=== PATIENT | female | born 1965 | race American Indian/Alaskan Native ===

== ENCOUNTER 2016-11-28 16:58 | Emergency (ER) | payer SELFPAY ==
[2016-11-28 18:21] LABS: Basophils % (Auto) 1.1 % (0.0-1.8); Eosinophils % (Auto) 5.6 % (0.0-4.3); Hematocrit 41.3 % (30.3-42.9); Hemoglobin 13.6 gm/dl (10.1-14.3); Mean Corpuscular HGB Conc 33 % (30-34); Mean Corpuscular Hemoglobin 28 pg (28-32); Mean Corpuscular Volume 86 fl (79-97); Platelet Count 177 K/mm3 (140-440); Red Blood Count 4.81 M/mm3 (3.65-5.03); Red Cell Distribution Width 13.8 % (13.2-15.2); White Blood Count 4.4 K/mm3 (4.5-11.0)
[2016-11-28 18:45] LABS: Alanine Aminotransferase 11 units/L (7-56); Albumin 4.4 g/dL (3.9-5); Albumin/Globulin Ratio 1.4 %; Alkaline Phosphatase 96 units/L (35-129); Anion Gap 19 mmol/L; BUN/Creatinine Ratio 21.25; Bilirubin,Total < 0.20 mg/dL (0.1-1.2); Blood Urea Nitrogen 17 mg/dL (7-17); Calcium 9.3 mg/dL (8.4-10.2); Carbon Dioxide 27 mmol/L (22-30); Chloride 100.2 mmol/L (98-107); Glucose 86 mg/dL (65-100); Lipase 49 units/L (13-60); Potassium 4.5 mmol/L (3.6-5.0); Sodium 142 mmol/L (137-145); Total Protein 7.6 g/dL (6.3-8.2)
[2016-11-28 23:04] VITALS: BP 140/78
[2016-11-28] MEDS: NACL 0.9% 1000 ML 1,000 ML IV ONE (23:10)
[2016-11-28 23:41] LABS: Bilirubin,Urine NEG (Negative); Blood,Urine NEG (Negative); Ketones,Urine NEG (Negative); Leukocyte Esterase,Urine TR (Negative); Mucus,Urine FEW /HPF; Nitrite,Urine NEG (Negative); Protein,Urine <15 mg/dL mg/dL (Negative); Urobilinogen,Urine < 2.0 mg/dL (<2.0)
--- NOTE | 2016-11-29 00:07 | Emergency Department Report ---
HPI - General Chief Complaint: Abdominal Pain Time Seen by Provider: 11/28/16 22:43 - HPI HPI: 50-year-old female brought to ED with abdominal pain for 2 weeks. Symptoms are also accompanied by dysuria, increased urinary frequency, but no flank pain. ED Past Medical Hx - Past Medical History Previous Medical History?: Yes Additional medical history: herpes - Surgical History Past Surgical History?: No - Family History Family history: hypertension - Social History Smoking Status: Never Smoker Substance Use Type: None - Medications Home Medications: Home Medications Medication Instructions Recorded Confirmed Last Taken Type Ciprofloxacin HCl [Ciprofloxacin 500 mg PO Q12HR #20 tab 11/29/16 Unknown Rx TAB] Dicyclomine [Bentyl] 10 mg PO QID #20 bottle 11/29/16 Unknown Rx ED Review of Systems ROS: Stated complaint: CONFUSED/ANXIOUS/ABD PAINS Other details as noted in HPI Constitutional: no symptoms reported Gastrointestinal: abdominal pain Physical Exam - Physical Exam Vital Signs: Vital Signs 11/28/16 11/28/16 17:35 23:02 Temperature 98.6 F Pulse Rate 71 74 Respiratory 18 16 Rate Blood Pressure 129/83 Blood Pressure 140/78 [Left] O2 Sat by Pulse 100 95 Oximetry Physical Exam: Gen. alert and oriented 3 in no distress Head atraumatic normocephalic Eyes PERR LA EOMI Chest regular rate and rhythm normal S1-S2 lungs clear bilaterally Abdomen soft nondistended Back no point tenderness paravertebral tenderness Neuro no focal deficit. Psych normal mood. ED Course Vital Signs 11/28/16 11/28/16 17:35 23:02 Temperature 98.6 F Pulse Rate 71 74 Respiratory 18 16 Rate Blood Pressure 129/83 Blood Pressure 140/78 [Left] O2 Sat by Pulse 100 95 Oximetry ED Medical Decision Making - Lab Data Result diagrams: 11/28/16 17:53 11/28/16 17:53 Critical care attestation.: If time is entered above; I have spent that time in minutes in the direct care of this critically ill patient, excluding procedure time. ED Disposition Clinical Impression: Cystitis Disposition: DC-01 TO HOME OR SELFCARE Is pt being admited?: No Does the pt Need Aspirin: No Condition: Stable Instructions: Abdominal Pain (ED) Prescriptions: Ciprofloxacin HCl [Ciprofloxacin TAB] 500 mg PO Q12HR #20 tab Dicyclomine [Bentyl] 10 mg PO QID #20 bottle Referrals: PRIMARY CARE, [Primary Care Provider] - 3-5 Days
== END 2016-11-29 00:23 | disposition home or self-care (01) ==
LOC: ED 16:58
DX: N30.90 Cystitis, unspecified without hematuria (principal)
CPT/HCPCS: 36415; 80053; 81001; 82962; 83690; 85025; 93005; 93010; 96360; 99283; J7030

== ENCOUNTER 2016-12-04 10:41 | Emergency (ER) | payer SELFPAY ==
[2016-12-04] MEDS ORDERED: NACL 0.9% 1000 ML 1,000 ML IV ONE (11:15)
[2016-12-04 11:56] LABS: Alanine Aminotransferase 10 units/L (7-56); Albumin/Globulin Ratio 1.2 %; Alkaline Phosphatase 83 units/L (35-129); BUN/Creatinine Ratio 18.75; Blood Urea Nitrogen 15 mg/dL (7-17); Calcium 8.8 mg/dL (8.4-10.2); Carbon Dioxide 28 mmol/L (22-30); Glucose 79 mg/dL (65-100); Lipase 39 units/L (13-60); Total Protein 7.4 g/dL (6.3-8.2)
[2016-12-04 11:57] LABS: Anion Gap 16 mmol/L; Chloride 100.4 mmol/L (98-107); Potassium 4.5 mmol/L (3.6-5.0); Sodium 140 mmol/L (137-145)
[2016-12-04 11:58] LABS: Basophils % (Auto) 1.1 % (0.0-1.8); Eosinophils % (Auto) 4.6 % (0.0-4.3); Hematocrit 38.9 % (30.3-42.9); Mean Corpuscular HGB Conc 33 % (30-34); Mean Corpuscular Hemoglobin 29 pg (28-32); Mean Corpuscular Volume 86 fl (79-97); Platelet Count 155 K/mm3 (140-440); Red Blood Count 4.53 M/mm3 (3.65-5.03); Red Cell Distribution Width 13.7 % (13.2-15.2); White Blood Count 3.7 K/mm3 (4.5-11.0)
[2016-12-04 12:09] LABS: INR 0.97 (0.87-1.13)
--- NOTE | 2016-12-04 16:55 | Emergency Department Report ---
ED General Adult HPI - General Chief complaint: GI Bleed Stated complaint: BLOOD IN STOOL Time Seen by Provider: 12/04/16 16:54 Source: patient Mode of arrival: Ambulatory Limitations: No Limitations - History of Present Illness Initial comments: Patient is a 50-year-old female with a past medical history of hypertension and GERD who presents with rectal bleeding. Patient states symptoms have occurred today.She states that there was some streaks of blood in her toliet paper after she had a bowel movement. Patient states that she has no pain. Patient's symptoms are not severe. It only occurred once today. She has no headache no nausea no vomiting. She also states that this is never happened before. Patient denies any black stool or abdominal pain. - Related Data Home Medications Medication Instructions Recorded Confirmed Last Taken Aspirin [Aspirin BABY CHEW TAB] 81 mg PO QDAY 12/04/16 12/04/16 Unknown Previous Rx's Medication Instructions Recorded Last Taken Type Phenyleph/Mineral Oil/Petrolat 28 gm RC BID #1 oint.appl 12/04/16 Unknown Rx [Preparation H Ointment] Allergies Allergy/AdvReac Type Severity Reaction Status Date / Time No Known Allergies Allergy Verified 12/04/16 11:09 ED Review of Systems ROS: Stated complaint: BLOOD IN STOOL Other details as noted in HPI Constitutional: denies: chills, fever Eyes: denies: eye pain, eye discharge, vision change ENT: denies: ear pain, throat pain Respiratory: denies: cough, shortness of breath, wheezing Cardiovascular: denies: chest pain, palpitations Endocrine: no symptoms reported Gastrointestinal: hematochezia. denies: abdominal pain, nausea, diarrhea Genitourinary: denies: urgency, dysuria, discharge Musculoskeletal: denies: back pain, joint swelling, arthralgia Skin: denies: rash, lesions Neurological: denies: headache, weakness, paresthesias Psychiatric: denies: anxiety, depression Hematological/Lymphatic: denies: easy bleeding, easy bruising ED Past Medical Hx - Past Medical History Hx Hypertension: Yes Hx GERD: Yes Additional medical history: herpes. HEART MURMUR / PALPIATIONS - Surgical History Additional Surgical History: TUBAL LIGATION - Social History Smoking Status: Never Smoker Substance Use Type: None - Medications Home Medications: Home Medications Medication Instructions Recorded Confirmed Last Taken Type Aspirin [Aspirin BABY CHEW TAB] 81 mg PO QDAY 12/04/16 12/04/16 Unknown History Phenyleph/Mineral Oil/Petrolat 28 gm RC BID #1 oint.appl 12/04/16 Unknown Rx [Preparation H Ointment] ED Physical Exam - General Limitations: No Limitations General appearance: alert, in no apparent distress - Head Head exam: Present: atraumatic, normocephalic - Eye Eye exam: Present: normal appearance - ENT ENT exam: Present: mucous membranes moist - Neck Neck exam: Present: normal inspection - Respiratory Respiratory exam: Present: normal lung sounds bilaterally. Absent: respiratory distress - Cardiovascular Cardiovascular Exam: Present: regular rate, normal rhythm. Absent: systolic murmur, diastolic murmur, rubs, gallop - GI/Abdominal GI/Abdominal exam: Present: soft, normal bowel sounds - Rectal Rectal exam: Present: other (external hemorrhoid and no gross bloody stool) - Extremities Exam Extremities exam: Present: normal inspection - Back Exam Back exam: Present: normal inspection - Neurological Exam Neurological exam: Present: alert, oriented X3, CN II-XII intact - Psychiatric Psychiatric exam: Present: normal affect, normal mood - Skin Skin exam: Present: warm, dry, intact, normal color. Absent: rash ED Course Vital Signs 12/04/16 12/04/16 12/04/16 11:09 16:19 16:30 Temperature 97.7 F Pulse Rate 66 60 Respiratory 17 14 17 Rate Blood Pressure 130/88 140/79 O2 Sat by Pulse 100 100 100 Oximetry 12/04/16 17:01 Temperature Pulse Rate 62 Respiratory 19 Rate Blood Pressure 142/73 O2 Sat by Pulse 99 Oximetry ED Medical Decision Making - Lab Data Result diagrams: 12/04/16 11:17 12/04/16 11:17 Lab Results 12/04/16 12/04/16 12/04/16 Range/Units 11:17 11:17 11:17 WBC 3.7 L (4.5-11.0) K/mm3 RBC 4.53 (3.65-5.03) M/mm3 Hgb 13.0 (10.1-14.3) gm/dl Hct 38.9 (30.3-42.9) % MCV 86 (79-97) fl MCH 29 (28-32) pg MCHC 33 (30-34) % RDW 13.7 (13.2-15.2) % Plt Count 155 (140-440) K/mm3 Lymph % (Auto) 40.3 H (13.4-35.0) % Bucks % (Auto) 9.4 H (0.0-7.3) % Eos % (Auto) 4.6 H (0.0-4.3) % Baso % (Auto) 1.1 (0.0-1.8) % Lymph # 1.5 (1.2-5.4) K/mm3 Bucks # 0.3 (0.0-0.8) K/mm3 Eos # 0.2 (0.0-0.4) K/mm3 Baso # 0.0 (0.0-0.1) K/mm3 Seg Neutrophils % 44.6 (40.0-70.0) % Seg Neutrophils # 1.6 L (1.8-7.7) K/mm3 PT 13.4 (12.2-14.9) Sec. INR 0.97 (0.87-1.13) APTT 28.0 (24.2-36.6) Sec. Sodium 140 (137-145) mmol/L Potassium 4.5 (3.6-5.0) mmol/L Chloride 100.4 (98-107) mmol/L Carbon Dioxide 28 (22-30) mmol/L Anion Gap 16 mmol/L BUN 15 (7-17) mg/dL Creatinine 0.8 (0.7-1.2) mg/dL Estimated GFR > 60 ml/min BUN/Creatinine Ratio 18.75 % Glucose 79 (65-100) mg/dL Calcium 8.8 (8.4-10.2) mg/dL Total Bilirubin 0.30 (0.1-1.2) mg/dL AST 15 (5-40) units/L ALT 10 (7-56) units/L Alkaline Phosphatase 83 (35-129) units/L Total Protein 7.4 (6.3-8.2) g/dL Albumin 4.0 (3.9-5) g/dL Albumin/Globulin Ratio 1.2 % Lipase 39 (13-60) units/L Blood Type Antibody Screen 12/04/16 Range/Units 11:17 WBC (4.5-11.0) K/mm3 RBC (3.65-5.03) M/mm3 Hgb (10.1-14.3) gm/dl Hct (30.3-42.9) % MCV (79-97) fl MCH (28-32) pg MCHC (30-34) % RDW (13.2-15.2) % Plt Count (140-440) K/mm3 Lymph % (Auto) (13.4-35.0) % Bucks % (Auto) (0.0-7.3) % Eos % (Auto) (0.0-4.3) % Baso % (Auto) (0.0-1.8) % Lymph # (1.2-5.4) K/mm3 Bucks # (0.0-0.8) K/mm3 Eos # (0.0-0.4) K/mm3 Baso # (0.0-0.1) K/mm3 Seg Neutrophils % (40.0-70.0) % Seg Neutrophils # (1.8-7.7) K/mm3 PT (12.2-14.9) Sec. INR (0.87-1.13) APTT (24.2-36.6) Sec. Sodium (137-145) mmol/L Potassium (3.6-5.0) mmol/L Chloride (98-107) mmol/L Carbon Dioxide (22-30) mmol/L Anion Gap mmol/L BUN (7-17) mg/dL Creatinine (0.7-1.2) mg/dL Estimated GFR ml/min BUN/Creatinine Ratio % Glucose (65-100) mg/dL Calcium (8.4-10.2) mg/dL Total Bilirubin (0.1-1.2) mg/dL AST (5-40) units/L ALT (7-56) units/L Alkaline Phosphatase (35-129) units/L Total Protein (6.3-8.2) g/dL Albumin (3.9-5) g/dL Albumin/Globulin Ratio % Lipase (13-60) units/L Blood Type O POSITIVE Antibody Screen Negative - Medical Decision Making Chief medical diagnosis: External hemorrhoids Differential diagnosis internal hemorrhoids, diverticulosis We'll do a rectal exam, CBC, CMP The patient has external hemorrhoid. Given patient's clinical syndromes and patient is not anemic and no large amount of blood loss from the previous visit she was here 4 days ago. He is also hemodynamically stable and from history patient did not lose a large amount of blood. The patient has a bleed from a external hemorrhoid and can follow-up at a low cost health clinic. Discussed with patient about external hemorrhoids and will have outpatient follow-up. Critical care attestation.: If time is entered above; I have spent that time in minutes in the direct care of this critically ill patient, excluding procedure time. ED Disposition Clinical Impression: External hemorrhoid Disposition: DC-01 TO HOME OR SELFCARE Is pt being admited?: No Does the pt Need Aspirin: No Condition: Stable Instructions: Hemorrhoids (ED) Additional Instructions: Take sitz baths. A sitz bath or hip bath is a bath in which a person sits in water up to the hips.[1] It is used to relieve discomfort and pain in the lower part of the body, for example, due to hemorrhoids (piles), anal fissures, rectal surgery, an episiotomy, uterine cramps, inflammatory bowel disease, and infections of the bladder, prostate or vagina. It works by keeping the affected area clean and increasing the flow of blood to it. Prescriptions: Phenyleph/Mineral Oil/Petrolat [Preparation H Ointment] 28 gm RC BID #1 oint.appl Referrals: PRIMARY CARE, [Primary Care Provider] - 3-5 Days [facility] [Outside] - 3-5 Days Forms: Accompanied Note Time of Disposition: 17:24
[2016-12-04 17:32] VITALS: BP 142/73
== END 2016-12-04 17:36 | disposition home or self-care (01) ==
LOC: ED 10:41
DX: K64.4 Residual hemorrhoidal skin tags (principal); K21.9 Gastro-esophageal reflux disease without esophagitis; I10 Essential (primary) hypertension
CPT/HCPCS: 36415; 80053; 83690; 85025; 85610; 85730; 86850; 86900; 86901; 96360; 99284; J7030

== ENCOUNTER 2021-06-12 13:13 | Outpatient (CLI) | payer BC ==
--- NOTE | 2021-06-12 14:43 | Cat Scan Report ---
CT BRAIN: 06/12/2021 INDICATION / CLINICAL INFORMATION: VISUAL DISTURBANCES PAIN/ PRESSURE IN THE RIGHT SIDE FRONT SIDE OF HEAD. COMPARISON: None available. FINDINGS: BRAIN/INTRACRANIAL STRUCTURES: Contrast enhanced CT images of the brain demonstrate no evidence of ac [place] abnormality. Ventricles and sulci are normal in size and shape. There is no evidence of ischemic injury, hemorrhage, or mass. There are no abnormal extra-axial fluid collections. There is no abnormal contrast enhancement. There is a 1 cm calcified dural nodule in the left parietal region. This can be seen as a normal vari ant, or can be associated with indolent meningioma, of unlikely clinical significance at this time. EXTRACRANIAL STRUCTURES: Unremarkable. IMPRESSION: Negative contrast enhanced CT of the brain. All CT scans at this location are performed using dose reduction to ALARA by means of automated expos ure control. Signer Name: Jeremy Mares MD Signed: 06/12/2021 2:38 PM Workstation Name: [id number]
== END 2021-06-12 13:14 | disposition home or self-care (01) ==
LOC: CT 13:13
PROVIDERS: ATTEND Internal Medicine
DX: G93.89 Other specified disorders of brain (principal); H93.13 Tinnitus, bilateral; R51.9 Headache, unspecified
CPT/HCPCS: 70460; Q9967